=== PATIENT | female | born 1950 | race African-American/Black ===

== ENCOUNTER → 2017-01-16 | Outpatient (CLI) | payer OTHER ==
--- NOTE | ~2017-01-16 | US85 ---
[facility] A Service of [facility] RADIOLOGY TEXT RESULTS PATIENT: MISSAEL SCHMITZ LOCATION: CNIV : 54 UNIT #: [id number] AGE: [address]: DEMETRIS TAVAREZ MD SEX: F ORDER DR: [id number] [facility] [address] [place], [place] [address] [id number] O MR#: [id number] Acc #: [id number] NAME: MISSAEL SCHMITZ : 1950 SEX: F STUDY DATE/TIME: 01/16/2017 12:12 UNIT: CNIV ROOM: STUDY DESCRIPTION: [facility] [place] [employer] Attending Physician: Demetris Tavarez M.D. Referring Physician: Demetris Tavarez M.D. Ordering Physician: Demetris Tavarez M.D. Primary Care Physician: Denzel Silverio M.D. MEDICAL IMAGING REPORT This report is preliminary unless electronic signature is present EXAM Right leg vein Doppler ultrasound 01/16 INDICATIONS History of pulmonary embolism and DVT. Patient has right lower extremity swelling chronically over several years. TECHNIQUE Venous ultrasound examination of the right lower extremity was performed using grayscale, spectral Doppler and color flow Doppler imaging. FINDINGS The examination is negative. There is no evidence of right lower extremity deep venous thrombus from the groin to the lower calf. Visualized greater saphenous vein is also patent. IMPRESSION Negative examination. No evidence of right lower extremity deep venous thrombosis. Dictated by... Chi Neville Jr., M.D. THIS IS AN ELECTRONICALLY VERIFIED REPORT Chi Neville Jr., M.D. at 01/16/2017 5:00 PM LETY/won TD: 01/16/2017 14:52 JOB #: [id number] MEDICAL IMAGING REPORT COPY
== END | disposition home or self-care (01) ==
LOC: CNIV 10:56
DX: I82.491 Acute embolism and thrombosis of other specified deep vein of right lower extremity (principal)
CPT/HCPCS: 93971